=== PATIENT | female | born 1995 | race American Indian/Alaskan Native ===

== ENCOUNTER 2017-12-21 04:34 | Outpatient (CLI) | payer MEDICAID ==
[2017-12-21] MEDS ORDERED: LACTATED RINGERS 1,000 ML IV ONE (05:00)
== END 2017-12-21 06:10 | disposition home or self-care (01) ==
LOC: TRG 04:34
PROVIDERS: ATTEND Obstetrics & Gynecology
DX: O47.03 False labor before 37 completed weeks of gestation, third trimester (principal); Z87.891 Personal history of nicotine dependence; Z88.1 Allergy status to other antibiotic agents; Z3A.33 33 weeks gestation of pregnancy
CPT/HCPCS: 59025

== ENCOUNTER 2018-01-12 23:14 | Outpatient (CLI) | payer MEDICAID ==
[2018-01-13 00:19] LABS: Bacteria,Urine 2+ /HPF (Negative); Bilirubin,Urine NEG (Negative); Blood,Urine NEG (Negative); Color,Urine Yellow (Yellow); Protein,Urine <15 mg/dL mg/dL (Negative); Urobilinogen,Urine < 2.0 mg/dL (<2.0)
[2018-01-13 00:43] VITALS: BP 112/69
== END 2018-01-13 00:55 | disposition home or self-care (01) ==
LOC: TRG 23:14
PROVIDERS: ATTEND Obstetrics & Gynecology Gynecology
DX: O36.8130 Decreased fetal movements, third trimester, not applicable or unspecified (principal); O99.513 Diseases of the respiratory system complicating pregnancy, third trimester; J45.901 Unspecified asthma with (acute) exacerbation; Z3A.36 36 weeks gestation of pregnancy; Z88.6 Allergy status to analgesic agent; Z87.891 Personal history of nicotine dependence
CPT/HCPCS: 59025; 81001

== ENCOUNTER 2019-02-26 08:10 | Emergency (ER) | payer SELFPAY ==
[2019-02-26 08:29] VITALS: BP 113/73
--- NOTE | 2019-02-26 09:33 | Emergency Department Report ---
HPI - General Chief Complaint: Abdominal Pain Time Seen by Provider: 02/26/19 09:10 - HPI HPI: Room 37 The patient is a 23-year-old female presenting with chief complaint of chest pain. The patient states for the past 2-3 days she's had right-sided chest pain is constant and sharp in nature. Patient states the pain radiates up to her neck. Patient also admits to a cough has been productive of white sputum initially for 1 week. Patient states she's also had left side pain headache and hematuria. Patient denies dysuria. Patient missed a rhinorrhea but denies history of fever Location: [See above] Duration: [See above] Quality: [See above] Severity: [See above] Timing: [See above] Context: [See above] Modifying factors: [See above] Associated signs and symptoms: [see above] ED Past Medical Hx - Past Medical History Hx Asthma: Yes (no inhaler) - Surgical History Past Surgical History?: No - Family History Family history: no significant - Social History Smoking Status: Former Smoker (none 1.5 years) Substance Use Type: None (denies illicit drug use) - Medications Home Medications: Home Medications Medication Instructions Recorded Confirmed Last Taken Type Albuterol Sulfate [Albuterol 0.63% 0.63 mg IH TID PRN #1 box 06/27/16 Unknown Rx NEBS] Albuterol Sulfate [Ventolin HFA] 2 puff IH Q4H PRN #1 hfa.aer.ad 06/21/18 Unknown Rx Amoxicillin/Potassium Clav 1 each PO BID #20 tablet 06/21/18 Unknown Rx [Augmentin 875-125 Tablet] Brompheniramine/Pseudoephed/Dm 10 ml PO QID #200 syrup 06/21/18 Unknown Rx [Bromfed Dm Cough Syrup] Ibuprofen [Ibu] 600 mg PO TID PRN #30 tablet 06/21/18 Unknown Rx predniSONE [Deltasone] 20 mg PO BID #10 tablet 06/21/18 Unknown Rx ALBUTEROL Inhaler (OR & NICU) 2 puff IH QID PRN #1 inhalation 02/26/19 Unknown Rx [Proair] Azithromycin [Zithromax Z-RAFAT] 0 mg PO DAILY #6 tab 02/26/19 Unknown Rx Benzonatate [Tessalon Perles] 100 mg PO Q8HR #30 capsule 02/26/19 Unknown Rx traMADol [Ultram] 50 mg PO Q6HR PRN #10 tablet 02/26/19 Unknown Rx ED Review of Systems ROS: Stated complaint: CHEST PAIN/ABD PAIN/BODY Other details as noted in HPI Constitutional: denies: fever Eyes: denies: eye pain ENT: denies: throat pain Respiratory: cough. denies: shortness of breath Cardiovascular: chest pain Endocrine: no symptoms reported Gastrointestinal: abdominal pain Genitourinary: hematuria. denies: dysuria Musculoskeletal: back pain Neurological: headache Physical Exam - Physical Exam Vital Signs: Vital Signs 02/26/19 02/26/19 08:16 08:18 Temperature 98.7 F Pulse Rate 87 86 Respiratory 16 16 Rate Blood Pressure 113/73 113/73 O2 Sat by Pulse 97 97 Oximetry Physical Exam: GENERAL: The patient is well-developed well-nourished female lying on stretcher not appearing to be in acute distress. [] HEENT: Normocephalic. Atraumatic. Extraocular motions are intact. Patient has moist mucous membranes. TMs clear bilaterally NECK: Supple. No meningitic signs are noted. Trachea midline CHEST/LUNGS: Clear to auscultation. There is no respiratory distress noted. HEART/CARDIOVASCULAR: Regular. There is no tachycardia. There is no gallop rub or murmur. ABDOMEN: Abdomen is soft, nontender. Patient has normal bowel sounds. There is no abdominal distention. SKIN: There is no rash. There is no edema. There is no diaphoresis. NEURO: The patient is awake, alert, and oriented. The patient is cooperative. The patient has no focal neurologic deficits. The patient has normal speech. Cranial nerves II through XII grossly intact, no drift MUSCULOSKELETAL: There is no evidence of acute injury. ED Course Vital Signs 02/26/19 02/26/19 08:16 08:18 Temperature 98.7 F Pulse Rate 87 86 Respiratory 16 16 Rate Blood Pressure 113/73 113/73 O2 Sat by Pulse 97 97 Oximetry ED Medical Decision Making - Lab Data Result diagrams: 02/26/19 09:44 02/26/19 09:44 Laboratory Tests 02/26/19 02/26/19 02/26/19 09:28 09:29 09:44 WBC 8.4 RBC 4.58 Hgb 13.5 Hct 40.4 MCV 88 MCH 30 MCHC 33 RDW 14.8 Plt Count 189 Lymph % (Auto) 24.6 Amador % (Auto) 3.4 Eos % (Auto) 4.5 H Baso % (Auto) 0.5 Lymph # 2.1 Amador # 0.3 Eos # 0.4 Baso # 0.0 Seg Neutrophils % 67.0 Seg Neutrophils # 5.6 D-Dimer Sodium Potassium Chloride Carbon Dioxide Anion Gap BUN Creatinine Estimated GFR BUN/Creatinine Ratio Glucose Calcium Total Bilirubin AST ALT Alkaline Phosphatase Total Creatine Kinase CK-MB (CK-2) CK-MB (CK-2) Rel Index Troponin T Total Protein Albumin Albumin/Globulin Ratio Lipase Urine Color Yellow Urine Turbidity Cloudy Urine pH 6.0 Ur Specific Mitchell 1.014 Urine Protein <15 mg/dl Urine Glucose (UA) Neg Urine Ketones Neg Urine Blood Sm Urine Nitrite Neg Ur Reducing Substances Not Reportable Urine Bilirubin Neg Urine Ictotest Not Reportable Urine Urobilinogen < 2.0 Ur Leukocyte Esterase Lg Urine WBC (Auto) 5.0 Urine RBC (Auto) 6.0 U Epithel Cells (Auto) 18.0 H Urine Bacteria (Auto) 2+ Urine Mucus Few Urine HCG, Qual Negative Influenza A (Rapid) Negative Influenza B (Rapid) Negative 02/26/19 02/26/19 09:44 09:44 WBC RBC Hgb Hct MCV MCH MCHC RDW Plt Count Lymph % (Auto) Amador % (Auto) Eos % (Auto) Baso % (Auto) Lymph # Amador # Eos # Baso # Seg Neutrophils % Seg Neutrophils # D-Dimer 247.43 H Sodium 138 Potassium 4.3 Chloride 104.6 Carbon Dioxide 21 L Anion Gap 17 BUN 8 Creatinine 0.8 Estimated GFR > 60 BUN/Creatinine Ratio 10 Glucose 95 Calcium 8.9 Total Bilirubin 0.40 AST 14 ALT 14 Alkaline Phosphatase 70 Total Creatine Kinase 99 CK-MB (CK-2) < 1.0 CK-MB (CK-2) Rel Index 1.0 Troponin T < 0.010 Total Protein 7.3 Albumin 4.1 Albumin/Globulin Ratio 1.3 Lipase 22 Urine Color Urine Turbidity Urine pH Ur Specific Mitchell Urine Protein Urine Glucose (UA) Urine Ketones Urine Blood Urine Nitrite Ur Reducing Substances Urine Bilirubin Urine Ictotest Urine Urobilinogen Ur Leukocyte Esterase Urine WBC (Auto) Urine RBC (Auto) U Epithel Cells (Auto) Urine Bacteria (Auto) Urine Mucus Urine HCG, Qual Influenza A (Rapid) Influenza B (Rapid) - EKG Data -: EKG Interpreted by Me EKG shows normal: sinus rhythm Rate: normal - EKG Data When compared to previous EKG there are: previous EKG unavailable Interpretation: other (no ischemic changes seen) - Radiology Data Radiology results: image reviewed (chest x-ray) interpreted by me: Chest x-ray-no focal infiltrate, no pneumothorax - Differential Diagnosis URI, pneumonia, bronchitis, PE, UTI Critical care attestation.: If time is entered above; I have spent that time in minutes in the direct care of this critically ill patient, excluding procedure time. ED Disposition Clinical Impression: Acute bronchitis Disposition: DC- TO HOME OR SELFCARE Is pt being admited?: No Does the pt Need Aspirin: No Condition: Stable Instructions: Abdominal Pain (ED), Acute Bronchitis (ED) Additional Instructions: Return to the emergency department should you develop worsening symptoms, inability to tolerate food or liquids, high fever or any other concerns Prescriptions: ALBUTEROL Inhaler (OR & NICU) [Proair] 2 puff IH QID PRN #1 inhalation PRN Reason: Shortness Of Breath Benzonatate [Tessalon Perles] 100 mg PO Q8HR #30 capsule traMADol [Ultram] 50 mg PO Q6HR PRN #10 tablet PRN Reason: Pain Azithromycin [Zithromax Z-RAFAT] 0 mg PO DAILY #6 tab Referrals: PRIMARY CARE, [Primary Care Provider] - 3-5 Days Time of Disposition: 11:23
[2019-02-26 09:54] LABS: HCG Qualitative,Urine Negative (Negative)
[2019-02-26 09:56] LABS: Bacteria,Urine 2+ /HPF (Negative); Bilirubin,Urine NEG (Negative); Blood,Urine SM (Negative); Color,Urine Yellow (Yellow); Mucus,Urine FEW /HPF; Protein,Urine <15 mg/dL mg/dL (Negative); Urobilinogen,Urine < 2.0 mg/dL (<2.0)
[2019-02-26 10:00] LABS: Basophils % (Auto) 0.5 % (0.0-1.8); Eosinophils # (Auto) 0.4 K/mm3 (0.0-0.4); Eosinophils % (Auto) 4.5 % (0.0-4.3); Hematocrit 40.4 % (30.3-42.9); Hemoglobin 13.5 gm/dl (10.1-14.3); Lymphocytes # (Auto) 2.1 K/mm3 (1.2-5.4); Lymphocytes % (Auto) 24.6 % (13.4-35.0); Mean Corpuscular HGB Conc 33 % (30-34); Mean Corpuscular Volume 88 fl (79-97); Monocytes # (Auto) 0.3 K/mm3 (0.0-0.8); Monocytes % (Auto) 3.4 % (0.0-7.3); Platelet Count 189 K/mm3 (140-440); Red Blood Count 4.58 M/mm3 (3.65-5.03); Red Cell Distribution Width 14.8 % (13.2-15.2)
[2019-02-26 11:00] LABS: Alanine Aminotransferase 14 units/L (7-56); Albumin 4.1 g/dL (3.9-5); BUN/Creatinine Ratio 10; Blood Urea Nitrogen 8 mg/dL (7-17); Calcium 8.9 mg/dL (8.4-10.2); Hemolysis Index 1
[2019-02-26 11:03] LABS: Creatine Kinase MB < 1.0 ng/mL (0.0-4.0)
--- NOTE | 2019-02-26 11:25 | XRay Report ---
CHEST 2 VIEWS INDICATION: chest pain, cough. COMPARISON: 06/21/2018 FINDINGS: Support devices: None. Heart: Normal. Pulmonary vasculature: Normal. Lungs/pleura: The lungs are normally expanded and clear. No pneumothorax. Additional findings: None. IMPRESSION: 1. No acute findings. Signer Name: Elias Carter MD Signed: 02/26/2019 11:21 AM Workstation Name: [id number]
== END 2019-02-26 11:40 | disposition home or self-care (01) ==
LOC: ED 08:10
DX: J20.9 Acute bronchitis, unspecified (principal); J45.909 Unspecified asthma, uncomplicated; Z87.891 Personal history of nicotine dependence; R31.9 Hematuria, unspecified; R51 Headache
CPT/HCPCS: 36415; 71046; 80053; 81001; 81025; 82550; 82553; 83690; 84484; 85025; 85379; 87400; 93005; 93010